=== PATIENT | male | born 1990 | race Caucasian/White ===

== ENCOUNTER 2017-12-21 03:13 | Emergency (ER) | payer SELFPAY ==
[~2017-12-21] VITALS: Ht 182.9 cm; Wt 100.2 kg
[2017-12-21 03:14] VITALS: BP 139/93
[2017-12-21] MEDS ORDERED: DIPH,PERTUSS(ACELL),TET VAC/PF 0.5 ML IM-VACC ONE ×3 (03:30→03:44)
[2017-12-21] MEDS ORDERED: LIDOCAINE-MPF 1%, 5ML INFIL ONE (03:30)
[2017-12-21] MEDS ORDERED: BACITRACIN ZINC OINT 500U/GM, 0.9 GM ONE (04:07)
== END 2017-12-21 04:27 | disposition home or self-care (01) ==
LOC: ED 04:20
DX: S01.511A Laceration without foreign body of lip, initial encounter (principal); G89.11 Acute pain due to trauma; F17.200 Nicotine dependence, unspecified, uncomplicated; V19.9XXA Pedal cyclist (driver) (passenger) injured in unspecified traffic accident, initial encounter; Y93.55 Activity, bike riding; Y92.410 Unspecified street and highway as the place of occurrence of the external cause; Y99.8 Other external cause status
CPT/HCPCS: 13132; 90471; 90715